=== PATIENT | female | born 1990 | race Caucasian/White ===

== ENCOUNTER 2016-03-22 13:24 | Emergency (ER) ==
[2016-03-22 13:35] VITALS: BP 120/75
[2016-03-22] MEDS ORDERED: SOLU-MEDROL IV ONE (14:08)
[2016-03-22] MEDS ORDERED: SODIUM CHLORIDE 0.9% INJ ONE (14:08)
[2016-03-22] MEDS ORDERED: BENADRYL IV ONE (14:08)
[2016-03-22] MEDS ORDERED: PEPCID IV ONE (14:08)
--- NOTE | 2016-03-22 14:10 | PROVIDER DOCUMENTATION ---
HPI-Rash/Wound/ReCheck <Sofi SmallIleana - Last Filed: 03/22/16 14:11> - General Source: patient - History of Present Illness-Dermatology Location: reports: generalized Quality: reports: itchy Severity: reports: mild, moderate Onset/Duration: reports: gradual, 3 days ago, 4 days ago Timing: reports: still present, constant Context/Associated Symptoms: reports: hives, rash. denies: lesion, malaise, sore throat, tingling Locality of Occurance: Home Similar Symptoms Previously?: Yes Recently seen or treated by another doctor?: Yes <Brian Jones - Last Filed: 03/22/16 14:49> - General Chief Complaint: Rash Stated Complaint: ALLERGIC REACTION Time Seen by Provider: 03/22/16 14:05 Allergies/Adverse Reactions: Allergies Allergy/AdvReac Type Severity Reaction Status Date / Time No Known Allergies Allergy Verified 05/03/13 15:32 - History of Present Illness-Dermatology Nature of Presenting Problem: patient is a 25 y/o F that presents to the ER with a diffuse rash x 3 days. pt was seen at [facility] and given steroids and Benadryl, she has used anti-itch lotions at home with no relief of symptoms. Was told to come to ER for allergen testing. pt denies fever/chills, sore throat, or nasal congestion. (Brian Jones) Review of Systems - Adult - REVIEW OF SYSTEMS - ADULT Constitutional: denies: chills, fever Eyes: reports: no symptoms reported Ears, Nose, Mouth & Throat: denies: ear pain, sinus problem, throat pain, throat swelling Cardiovascular: denies: chest pain, palpitations, syncope Respiratory: denies: dyspnea on exertion, shortness of breath, wheezing Gastrointestinal: denies: abdominal pain, diarrhea, nausea, vomiting Genitourinary: denies: dysuria, frequency, hematuria Musculoskeletal: reports: no symptoms reported Integumentary: reports: hives, itching, rash Neurological: reports: no symptoms reported Psychiatric: reports: no symptoms reported Endocrine: reports: no symptoms reported Hematologic/Lymphatic: reports: no symptoms reported Allergic/Immunologic: reports: no symptoms reported All Other Systems: Reviewed and Negative <Brian Jones - Last Filed: 03/22/16 14:49> Past History - Adult - PAST MEDICAL HISTORY-ADULT Cardiovascular: reports: denies history Respiratory: reports: denies history Gastrointestinal: reports: denies history Genitourinary: reports: denies history Musculoskeletal: reports: denies history Neurological: reports: denies history Endocrine/Immune: reports: denies history Other Conditions: reports: denies history - PRIOR SURGERIES/PROCEDURES Surgical/Procedure History: reports: none - PRIOR HOSPITALIZATIONS Prior Hospitalizations: reports: none - IMMUNIZATION STATUS Childhood Immunizations: See Nurse Assessment Flu Vaccine: See Nurse Assessment - FAMILY HISTORY Family History: reviewed, not pertinent <Sofi Small - Last Filed: 03/22/16 14:11> - PAST MEDICAL HISTORY-ADULT Review of Records: reports: Old Records Reviewed, Nursing Assessment Review, Medications Reviewed - PRIOR SURGERIES/PROCEDURES Surgical/Procedure History: reports: orthopedic (extremity) - IMMUNIZATION STATUS Childhood Immunizations: See Nurse Assessment Flu Vaccine: See Nurse Assessment - FAMILY HISTORY Family History: reviewed, not pertinent - SOCIAL HISTORY Smoking: cigarettes, less than 1 pack/day Living Situation: family <Brian Jones - Last Filed: 03/22/16 14:49> Physical Exam-General - PHYSICAL EXAM-ADULT Initial Vital Signs Reviewed: Yes - CONSTITUTIONAL General Appearance: alert, no apparent distress - EYES Eyes: PERRL/EOMI, pink conjunctivae - HEAD, EARS, NOSE, MOUTH & THROAT HENMT: normocephalic/atraumatic, moist mucous membranes, normal ENT inspection - NECK Neck: full range of motion, normal inspection - RESPIRATORY Respiratory: lungs clear, normal breath sounds, no respiratory distress, no accessory muscle use - CARDIOVASCULAR Cardiovascular: normal peripheral pulses, regular rate, rhythm, no murmur - GASTROINTESTINAL (ABDOMEN) Abdominal Exam: normal bowel sounds, non tender, soft - MUSCULOSKELETAL Back Exam: no CVA tenderness, no vertebral tenderness Extremity: normal range of motion, no pedal edema, normal capillary refill - SKIN Integumentary: warm/dry, rash (uticarial diffusely to body) - NEUROLOGIC Neurologic: grossly normal, no motor/sensory deficits - PSYCHIATRIC Psych/Mental Status: normal mood/affect, normal thought content, normal thought process, oriented x 3 <Brian Jones - Last Filed: 03/22/16 14:49> Progress <Sofi Small - Last Filed: 03/22/16 14:11> <Brian Jones - Last Filed: 03/22/16 14:49> - PLAN OF CARE/RESULTS Progress/Plan/Lab Results: Vital Signs Temp Pulse Resp BP Pulse Ox 03/22/16 13:32 97.5 F L 88 18 120/75 100 No Known Allergies Allergy (Verified 05/03/13 15:32) Cyclobenzaprine [Flexeril] 10 mg PO TID PRN #20 tablet 01/13/14 Hydrocodone/APAP 5 mg/325 mg [[place]-5] 1 - 2 tab PO Q6H PRN PRN #18 tablet 01/13 Naproxen 500 mg PO BID AC #60 tablet 01/13/14 Orders Category Date Time Status Saline Loc NOW Care 03/22/16 14:07 Active Diphenhydramine [Benadryl] Med 03/22/16 14:08 Discontinued 50 mg IV NOW ONE Famotidine [Pepcid] Med 03/22/16 14:08 Discontinued 20 mg IV NOW ONE Methylprednisolone Sod Succ [Solu-Medrol] Med 03/22/16 14:08 Discontinued 80 mg IV NOW ONE Sodium Chloride 0.9% Med 03/22/16 14:08 Discontinued 5 - 10 ml INJ NOW ONE (Sofi Small) 1440-patient asked to see the supervising physician. at bedside, examined patient. Agrees with plan of care, explained to patient. (Brian Jones) Departure - Departure Time of Disposition Order: 14:08 Certified Medical Emergency: Emergent <Sofi Small - Last Filed: 03/22/16 14:11> <Brian Jones - Last Filed: 03/22/16 14:49> - Departure DIAGNOSIS: Urticaria Disposition: HOME 01 Condition: Stable Additional Instructions: Continue the medications you are on. ED Follow Up Instructions: You have been treated by a care provider in the Emergency Department. These instructions are being provided to you so you can have an understanding of how to care for yourself upon discharge. Upon discharge from the Emergency Department, you are responsible for making arrangements for follow-up care by a physician of your choice. Take all prescribed medications as directed. Return to the Emergency Department immediately for any new or worsening symptoms. You may call the Physician Referral phone number at [phone] to obtain a list of Physicians who are taking new patients. Referrals: Viki Mcdaniel MD [Primary Care Provider] - Farzaneh Donald MD [STAFF PHYSICIAN] - Forms: Return to School/Parent Work Instructions: Rash Attestation - Scribe Verification/Attestation Scribe:: Brian Joens Acting as Scribe for:: Sofi Small Scribe documention review:: This chart was documented by a scribe and accurately reflects the service the provider performed and the decisions made by the provider. - Physician/ Mid-level Attestation Patient care was provided by Mid-level provider (PRINCIPAL ACCOUNT CLERK/PA):: Yes Mid-level provider:: Sofi Small Mid-level documentation review:: The Mid-level provider documentation, treatment plan and medical decision making was reviewed by the physician who agrees with all treatment and medical decision making by the [facility]. <Brian Jones - Last Filed: 03/22/16 14:49> Physician Attestation
[2016-03-22] MEDS ORDERED: DEPO-MEDROL IM ONE (14:45)
== END 2016-03-22 14:59 | disposition home or self-care (01) ==
LOC: P.ED 13:24
DX: L50.9 Urticaria, unspecified (principal); R21 Rash and other nonspecific skin eruption; L29.9 Pruritus, unspecified; F17.210 Nicotine dependence, cigarettes, uncomplicated; Z79.899 Other long term (current) drug therapy
CPT/HCPCS: 96372; J1040